=== PATIENT | female | born 1985 | race Caucasian/White ===

== ENCOUNTER 2021-08-17 22:05 | Emergency (ER) | payer MEDICAID ==
[~2021-08-17] VITALS: Ht 152.4 cm; Wt 56.7 kg
[2021-08-17 23:37] VITALS: BP 123/74
[2021-08-18] MEDS ORDERED: PRED20TA PO (00:27)
[2021-08-18] MEDS ORDERED: PSEU120T57 PO (00:27)
[2021-08-18] MEDS ORDERED: PSEUDOEPHEDRINE HCL 30 MG TABLET PO ONE (00:30)
[2021-08-18] MEDS ORDERED: P-EPHED SUL/LORATADINE (24H) 1 TAB.SR.24H PO SCH (00:30)
[2021-08-18] MEDS ORDERED: predniSONE 50 MG TABLET PO ONE (00:30)
[2021-08-18] MEDS ORDERED: predniSONE 20 MG TABLET ONE (00:33)
[2021-08-18] MEDS ORDERED: P-EPHED SUL/LORATADINE(12H) 1 TAB.SR.12H PO ONE (00:33)
[2021-08-18] MEDS ORDERED: PSEUDOEPHEDRINE HCL 30 MG TABLET ONE (00:33)
--- NOTE | 2021-08-18 00:40 | NUR ---
Patient discharged to home in stable condition. Written and verbal after care instructions given. Patient verbalizes understanding of instruction. Pt ambulatory with a steady gait
== END 2021-08-18 00:41 | disposition home or self-care (01) ==
LOC: ER 22:05
DX: R09.81 Nasal congestion (principal); Z91.09 Other allergy status, other than to drugs and biological substances
CPT/HCPCS: 71045; 99284; J7512